=== PATIENT | female | born 1970 | race Two or more races ===

== ENCOUNTER → 2024-07-27 | Outpatient (CLI) | payer MEDICAID, SELFPAY ==
--- NOTE | 2024-07-27 14:20 | XR_ITS ---
Examination: Foot, right, 3 views Technique: AP, oblique, lateral views foot, 3 views Date and time of exam: July 27, 2024 1433 hours INDICATIONS: Right foot pain this month FINDINGS: Adequate bone density Mild narrowing first metatarsophalangeal joint No fracture No dislocation Minimal ossification Achilles insertion into the calcaneus No cortical bone destruction IMPRESSION: Mild narrowing first metatarsophalangeal joint
== END | disposition home or self-care (01) ==
LOC: CDIM 14:08
PROVIDERS: PCP Physician Assistant; Referring Provider Physician Assistant; Visit Provider Physician Assistant
DX: M25.871 Other specified joint disorders, right ankle and foot (principal)
CPT/HCPCS: 73630